=== PATIENT | male | born 1960 | race Caucasian/White ===

== ENCOUNTER 2017-10-27 04:21 | Emergency (ER) | payer OTHER ==
--- NOTE | 2017-10-27 04:39 | ER Report ---
History and Physical Time Seen By MD: 04:25 HPI/ROS CHIEF COMPLAINT: A. fib HISTORY OF PRESENT ILLNESS: 57-year-old male with a history of atrial fibrillation status post ablation and cardioversion in the distant past. He was last had an ablation a year and a half ago. He's remained in a sinus rhythm previously was on metoprolol and eliquis. Patient got up to use the restroom at approximately 2 AM and felt himself go into atrial fibrillation with some mild chest pressure and palpitations. Patient notes no leg swelling. Patient admits to some beers last evening. He's in [employer]. Patient took metoprolol 50 mg and an eliquis which he had left over. REVIEW OF SYSTEMS: Respiratory: No cough, no dyspnea. Cardiovascular: As above Gastrointestinal: No vomiting, no abdominal pain. Musculoskeletal: No back pain. Allergies: Coded Allergies: No Known Allergies (Verified Allergy, Unknown, 10/27/17) Home Meds Reported Medications Metoprolol Tartrate (METOPROLOL TARTRATE) 25 Mg Tablet, 25 MG PO PRN, TAB 10/27/17 Apixaban (ELIQUIS) 5 Mg Tablet, 5 MG PO PRN 10/27/17 Metoprolol Succinate (METOPROLOL SUCCINATE) 25 Mg Tab.er.24h, 1 TAB PO QDAY, TAB 10/27/17 Reviewed Nurses Notes: Yes Old Medical Records Reviewed: Yes Constitutional Vital Sign - Last 24 Hours 10/27/17 10/27/17 10/27/17 10/27/17 04:21 04:25 04:26 04:27 Temp 97.5 Pulse ??? 124 106 Resp 14 B/P (MAP) 111/100 (104) 111/100 Pulse Ox 95 95 O2 Delivery Room Air 10/27/17 10/27/17 10/27/17 10/27/17 04:30 04:31 04:36 04:47 Pulse 103 123 118 Resp 24 13 B/P (MAP) 101/87 (92) 117/88 (98) Pulse Ox 93 93 10/27/17 10/27/17 10/27/17 10/27/17 04:50 04:56 05:00 05:05 Pulse 121 105 134 Resp 19 16 15 B/P (MAP) 115/99 (104) 102/88 (93) Pulse Ox 97 95 O2 Delivery Room Air Room Air 10/27/17 10/27/17 10/27/17 10/27/17 05:10 05:15 05:20 05:25 Pulse 120 109 100 86 Resp 15 19 17 15 Pulse Ox 94 95 95 95 10/27/17 10/27/17 10/27/17 10/27/17 05:30 05:33 05:35 05:37 Pulse 101 Resp 10 B/P (MAP) 99/70 (80) 85/67 (73) Pulse Ox 95 O2 Flow Rate 2.0 10/27/17 10/27/17 10/27/17 10/27/17 05:39 05:40 05:45 05:50 Pulse 93 88 89 Resp 15 16 13 B/P (MAP) 102/79 (87) 98/66 (77) 96/66 (76) Pulse Ox 90 97 95 O2 Delivery Nasal Cannula O2 Flow Rate 5.0 1 10/27/17 10/27/17 10/27/17 10/27/17 05:55 06:00 06:05 06:10 Pulse 84 85 Resp 12 18 B/P (MAP) 95/67 (76) 101/70 (80) Pulse Ox 94 90 O2 Delivery Nasal Cannula O2 Flow Rate 1.0 1 10/27/17 10/27/17 10/27/17 10/27/17 06:15 06:20 06:25 06:30 Pulse 82 80 Resp 15 12 B/P (MAP) 106/74 (85) 102/73 (83) Pulse Ox 91 92 10/27/17 06:35 Pulse 81 Resp 10 B/P (MAP) 100/79 (86) Pulse Ox 95 Physical Exam General Appearance: The patient is alert, has no immediate need for airway protection and no current signs of toxicity. Vital signs stable, afebrile, pulse ox normal, tachycardic to 142, atrial fibrillation on the laboratory monitor HEENT: Pupils equal and round no injection. Respiratory: Chest is non tender, lungs are clear to auscultation. Cardiac: Tachycardic, irregular rate and rhythm Gastrointestinal: Abdomen is soft and non tender, no masses, bowel sounds normal. Musculoskeletal: Neck: Neck is supple and non tender. Extremities have full range of motion and are non tender. Skin: No rashes or lesions. DIFFERENTIAL DIAGNOSIS: After history and physical exam differential diagnosis was considered for chest pain including but not limited to myocardial ischemia, pericarditis pulmonary embolus, chest wall pain, dysrhythmia, pleural inflammation and pulmonary infectious causes. Medical Decision Making Data Points Result Diagram: 10/27/17 0437 10/27/17 0437 Laboratory Hematology Test 10/27/17 04:37 Red Blood Count 4.94 M/uL (4.00-5.60) Mean Corpuscular Volume 93.4 fL (80.0-96.0) Mean Corpuscular Hemoglobin 33.1 pg (26.0-33.0) Mean Corpuscular Hemoglobin Concent 35.4 g/dL (32.0-36.0) Red Cell Distribution Width 12.9 % (11.5-14.5) Mean Platelet Volume 11.3 fL (7.2-11.1) Neutrophils (%) (Auto) 57.9 % (39.4-72.5) Lymphocytes (%) (Auto) 25.2 % (17.6-49.6) Monocytes (%) (Auto) 14.2 % (4.1-12.4) Eosinophils (%) (Auto) 2.1 % (0.4-6.7) Basophils (%) (Auto) 0.6 % (0.3-1.4) Nucleated RBC Relative Count (auto) 0.1 /100WBC Neutrophils # (Auto) 3.6 K/uL (2.0-7.4) Lymphocytes # (Auto) 1.6 K/uL (1.3-3.6) Monocytes # (Auto) 0.9 K/uL (0.3-1.0) Eosinophils # (Auto) 0.1 K/uL (0.0-0.5) Basophils # (Auto) 0.0 K/uL (0.0-0.1) Nucleated RBC Absolute Count (auto) 0.00 K/uL D-Dimer Quantitative (PE/DVT) 0.37 ug/ml (0-0.50) Sodium Level 135 mmol/L (137-145) Potassium Level 3.8 mmol/L (3.5-5.0) Chloride Level 102 mmol/L (98-107) Carbon Dioxide Level 24 mmol/L (22-30) Blood Urea Nitrogen 15 mg/dl (9-21) Creatinine 0.90 mg/dl (0.66-1.25) Glomerular Filtration Rate Calc > 60.0 Random Glucose 101 mg/dl (75-110) Calcium Level 8.6 mg/dl (8.4-10.2) Total Bilirubin 0.4 mg/dl (0.2-1.3) Aspartate Amino Transf (AST/SGOT) 38 U/L (0-35) Alanine Aminotransferase (ALT/SGPT) 42 U/L (0-56) Alkaline Phosphatase 81 U/L (0-126) Troponin I < 0.012 ng/ml B-Type Natriuretic Peptide 33 pg/ml (0-100) Total Protein 7.5 g/dl (6.3-8.2) Albumin 4.2 g/dl (3.5-5.0) Chemistry Test 10/27/17 04:37 White Blood Count 6.3 k/uL (4.5-11.0) Red Blood Count 4.94 M/uL (4.00-5.60) Hemoglobin 16.3 g/dL (14.0-18.0) Hematocrit 46.2 % (42.0-52.0) Mean Corpuscular Volume 93.4 fL (80.0-96.0) Mean Corpuscular Hemoglobin 33.1 pg (26.0-33.0) Mean Corpuscular Hemoglobin Concent 35.4 g/dL (32.0-36.0) Red Cell Distribution Width 12.9 % (11.5-14.5) Platelet Count 190 K/uL (150-450) Mean Platelet Volume 11.3 fL (7.2-11.1) Neutrophils (%) (Auto) 57.9 % (39.4-72.5) Lymphocytes (%) (Auto) 25.2 % (17.6-49.6) Monocytes (%) (Auto) 14.2 % (4.1-12.4) Eosinophils (%) (Auto) 2.1 % (0.4-6.7) Basophils (%) (Auto) 0.6 % (0.3-1.4) Nucleated RBC Relative Count (auto) 0.1 /100WBC Neutrophils # (Auto) 3.6 K/uL (2.0-7.4) Lymphocytes # (Auto) 1.6 K/uL (1.3-3.6) Monocytes # (Auto) 0.9 K/uL (0.3-1.0) Eosinophils # (Auto) 0.1 K/uL (0.0-0.5) Basophils # (Auto) 0.0 K/uL (0.0-0.1) Nucleated RBC Absolute Count (auto) 0.00 K/uL D-Dimer Quantitative (PE/DVT) 0.37 ug/ml (0-0.50) Glomerular Filtration Rate Calc > 60.0 Calcium Level 8.6 mg/dl (8.4-10.2) Total Bilirubin 0.4 mg/dl (0.2-1.3) Aspartate Amino Transf (AST/SGOT) 38 U/L (0-35) Alanine Aminotransferase (ALT/SGPT) 42 U/L (0-56) Alkaline Phosphatase 81 U/L (0-126) Troponin I < 0.012 ng/ml B-Type Natriuretic Peptide 33 pg/ml (0-100) Total Protein 7.5 g/dl (6.3-8.2) Albumin 4.2 g/dl (3.5-5.0) Coagulation Test 10/27/17 04:37 D-Dimer Quantitative (PE/DVT) 0.37 ug/ml EKG/Imaging EKG Interpretation 12 lead EK Rhythm: Atrial fibrillation rate of 137 [place]: normal QRS: normal ST segments: normal, no evidence of ischemia or dysrhythmia, no old EKGs for comparison 12 lead EK Rhythm: normal sinus rhythm [place]: normal QRS: normal ST segments: normal, conversion from atrial fibrillation noted on previous EKG. ED Course/Re-evaluation Clinical Indication for ER IV: Hydration, IV Access ED Course She was minute to an examination room. H&P was done. The differential diagnoses was considered. Patient in atrial fibrillation approximately 2-3 hours. He did take metoprolol and L Oquist. We discussed the risks and benefits of electrical cardioversion. Patient agreeable to undergoing a little cardioversion. We'll use propofol. Patient understands risk and benefits because he is undergone this procedure before as well as ablation. Patient's diagnostic studies were unremarkable. Conscious sedation was performed as noted below. Patient received 2 shocks 50 J and 100 J 100 J was successful in converting into a sinus rhythm at approximately 80-90 bpm. EKG documenting this was performed. Patient advised to follow-up with his mechanotherapist and primary care back in [place]. He is given copies of the EKG to take with him. Procedure: Procedural sedation. A pre-sedation evaluation was completed on the patient at 0 535. Patient is an appropriate candidate for procedural sedation. The risks of the sedation were discussed with the patient. A time out was completed. The patient was reevaluated immediately prior to initiation of sedation. The patient was sedated with propofol 150 mg. The patient was monitored with continuous pulse oximetry and equipment monitor phototypesetting. There were no complications and no significant hypoxemia. I remained at the bedside for the sedation. The total time I spent in the procedural sedation was 20 minutes. Post sedation evaluation: Patient was alert and cooperative, hemodynamically stable with appropriate respiratory status, temperature and pain control without ongoing nausea and vomiting. Procedure: Elective electrical cardioversion. The patient was electively electrically cardioverted for atrial fibrillation rate 140. The patient was on a continuous laboratory monitor, with airway equipment at the bedside. The patient was on continuous pulse oximetry. The cardioversion was attempted with 50 joules biphasic current. Which was unsuccessful, then 100 J. The cardioversion was successful. The patient tolerated the procedure well with no complications. The procedure was performed by myself. I remained at the bedside for 20 minutes. A post conversion EKG was documented at 80 bpm in a sinus rhythm with no ischemic changes. Decision to Disposition Date: Oct 27, 2017 Decision to Disposition Time: 05:43 Depart Departure Latest Vital Signs Vital Signs Date Time Temp Pulse Resp B/P (MAP) Pulse Ox O2 Delivery O2 Flow Rate FiO2 10/27/17 06:35 81 10 100/79 (86) 95 10/27/17 06:00 Nasal Cannula 1 10/27/17 04:27 97.5 Impression: Primary Impression: Atrial fibrillation with RVR Additional Impressions: History of cardioversion History of prior ablation treatment Condition: Improved Disposition: HOME OR SELF-CARE Patient Instructions: A-fib (Atrial Fibrillation) (ED) Additional Instructions: Follow-up with your mechanotherapist back in [place] Problem Qualifiers JESUS MANUEL NANCE DO Oct 27, 2017 04:39
[2017-10-27] MEDS ORDERED: METO25TA23 PO (04:48)
[2017-10-27] MEDS ORDERED: ASPIRIN 81 MG CHEW PO ONE (04:55)
[2017-10-27 05:10] LABS: PLATELET COUNT, AUTOMATED 190 K/uL (150-450)
[2017-10-27] MEDS ORDERED: METO25TA93 PO (05:12)
[2017-10-27] MEDS ORDERED: APIX5TAB PO (05:12)
[2017-10-27] MEDS ORDERED: PROPOFOL EMUL 10MG/ML 20 ML VL IV ONE (05:30)
--- NOTE | 2017-10-27 05:52 | EKG ---
[place] [facility] [place] H[place]ER PEÑA : [id number] MR: [id number] V: [id number] EXAM DATE: ORDERING PHYSICIAN: JESUS MANUEL NANCE TECHNOLOGIST: JACQUELINE Test Reason : CONVERTED Blood Pressure : / mmHG Vent. Rate : 088 BPM Atrial Rate : 088 BPM P-R Int : 160 ms QRS Dur : 092 ms QT Int : 386 ms P-R-T Axes : 056 002 016 degrees QTc Int : 467 ms Sinus rhythm Low voltage limb leads Poor R wave progression anteriorly Abnormal ECG Confirmed by EARLENE ELIZABETH ([id number]) on 10/27/2017 6:24:38 AM Referred By: Confirmed By:EARLENE ELIZABETH
--- NOTE | 2017-10-27 05:53 | EKG ---
FACILITY: [facility] [place] PATIENT NAME: HOMER PEÑA : [id number] MR: [id number] V: [id number] EXAM DATE: ORDERING PHYSICIAN: JESUS MANUEL NANCE TECHNOLOGIST: JACQUELINE Sparrow Reason : CARDIAC Blood Pressure : / mmHG Vent. Rate : 137 BPM Atrial Rate : 110 BPM P-R Int : 000 ms QRS Dur : 088 ms QT Int : 320 ms P-R-T Axes : 000 -05 006 degrees QTc Int : 483 ms Atrial fibrillation with rapid ventricular response Left axis Low voltage limb leads Abnormal ECG No previous ECGs available Confirmed by EARLENE ELIZABETH ([id number] on 10/27/2017 6:23:32 AM Referred By: Confirmed By:EARLENE ELIZABETH
[2017-10-27 06:35] VITALS: BP 100/79
== END 2017-10-27 06:45 | disposition home or self-care (01) ==
LOC: ER 04:53
DX: I48.91 Unspecified atrial fibrillation (principal)
CPT/HCPCS: 83880; 84484; 85025; 85379; 92960; 93005; 99152; 99285; J2704; 82040; 82247; 82310; 82374; 82435; 82565; 82947; 84075; 84132; 84155; 84295; 84450; 84460; 84520